=== PATIENT | male | born 1995 | race Caucasian/White ===

== ENCOUNTER 2021-02-26 21:12 | Emergency (ER) | payer OTHER ==
[2021-02-26 23:36] LABS: Basophils % 0.4 % (0-1.3); Lymphocytes % 10.5 % (15.3-44.8); MPV 7.7 fL (7.6-11.3); RBC Red Blood Cell Count 4.81 M/uL (4.33-5.43)
[2021-02-26 23:39] LABS: Protime INR 1.21
[2021-02-26] MEDS ORDERED: ACETAMINOPHEN 325 MG TABLET ONE (23:43)
[2021-02-26] MEDS ORDERED: NA CHLORIDE 0.9% 1,000 ML ONE (23:43)
[2021-02-27 00:01] LABS: ALT/SGPT 22 U/L (12-78); AST/SGOT 27 U/L (15-37); Albumin 4.3 g/dL (3.4-5.0); Alkaline Phosphatase 58 U/L (45-117); BUN Blood Urea Nitrogen 15 mg/dL (7-18); Bicarbonate 26 mmol/L (21-32); Bilirubin Direct 0.2 mg/dL (0-0.2); Bilirubin Total 0.9 mg/dL (0.2-1.0); Glucose Level 104 mg/dL (74-106); Potassium 3.5 mmol/L (3.5-5.1); Protein, Total 7.8 g/dL (6.4-8.2); Sodium Level 143 mmol/L (136-145)
--- NOTE | 2021-02-27 00:26 | ER ---
Nurse's Notes [facility] Name: Saulo Becerrli Age: 25 yrs Sex: Male : 1995 Arrival Date: 02/26/2021 Time: 21:44 Bed 4 Private MD: Diagnosis: Adverse effect of other vaccines and biological substances, initial encounter Presentation: 02/26 22:04 Chief complaint: EMS states: pt received second covid vaccine maderna today and now has bs2 a fever and is unconscious. Coronavirus screen: fever. Ebola Screen: No symptoms or risks identified at this time. Initial Sepsis Screen: Does the patient meet any 2 criteria? No. Patient's initial sepsis screen is negative. Does the patient have a suspected source of infection? No. Patient's initial sepsis screen is negative. Risk Assessment: Do you want to hurt yourself or someone else? Patient reports no desire to harm self or others. Onset of symptoms was February 26, 2021. 22:04 Method Of Arrival: [facility] bs2 22:04 Acuity: DAVE 3 bs2 22:07 Care prior to arrival: IV initiated. 20 GA, in the right antecubital area. bs2 Triage Assessment: 22:07 General: Appears in no apparent distress. slender, well groomed, well developed, well bs2 nourished, Behavior is unresponsive. Pain: Unable to use pain scale. Patient is unresponsive. Historical: - Allergies: 23:53 Iodine; bs2 - Home Meds: 23:53 Unable to obtain [Active]; bs2 - PMHx: 23:53 Asthma; bs2 - Immunization history:: Adult Immunizations up to date. - Social history:: Smoking status: unknown. Screenin:00 Abuse screen: Denies threats or abuse. Nutritional screening: No deficits noted. jb4 Tuberculosis screening: No symptoms or risk factors identified. Fall Risk None identified. Assessment: 21:30 General: Appears in no apparent distress. slender, well groomed, well developed, well bs2 nourished, Behavior is unresponsive. Pain: Unable to use pain scale. Patient is unresponsive. Cardiovascular: No deficits noted. Respiratory: No deficits noted. GI: No deficits noted. Vital Signs: 22:04 BP 136 / 78; Pulse 97; Resp 21; Temp 100.9; Pulse Ox 98% ; Weight 79.38 kg; Height 5 bs2 ft. 10 in. (177.80 cm); Pain 0/10; 22:30 BP 132 / 78; Pulse 98; Resp 19; Pulse Ox 100% on R/A; jb4 23:30 BP 111 / 63; Pulse 86; Resp 25; Pulse Ox 99% on R/A; jb4 02/27 00:30 BP 112 / 63; Pulse 95; Resp 18; Pulse Ox 100% on R/A; jb4 02/26 22:04 Body Mass Index 25.11 (79.38 kg, 177.80 cm) bs2 ED Course: 02/26 21:30 Patient has correct armband on for positive identification. Bed in low position. Call bs2 light in reach. Side rails up X2. Adult w/ patient. 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 Pulse ox on. NIBP on. Warm blanket given. 21:44 Patient arrived in ED. bs2 21:45 Rachel Ashraf is Attending Physician. sp3 22:04 Monalisa Loredo, RN is Primary Nurse. bs2 22:07 Triage completed. bs2 22:07 Arm band placed on right wrist. bs2 02/27 00:50 No provider procedures requiring assistance completed. IV discontinued, intact, jb4 bleeding controlled, No redness/swelling at site. Pressure dressing applied. 01:13 Chest Single View In Process Unspecified. EDMS Administered Medications: 02/26 23:25 Drug: NS 0.9% 1000 ml Route: IV; Rate: 1 bolus; Site: right antecubital; bs2 02/27 02:15 Follow up: IV Status: Completed infusion bs2 02/26 23:25 Drug: Tylenol 650 mg Route: PO; bs2 02/27 02:14 Follow up: Response: No adverse reaction; Temperature is decreased bs2 Outcome: 00:26 Discharge ordered by sp3 00:50 Discharged to Law Enforcement jb4 00:50 Condition: stable 00:50 Discharge instructions given to patient, police, Instructed on discharge instructions, follow up and referral plans. Demonstrated understanding of instructions, follow-up care. 01:31 Patient left the ED. jb4 Signatures: Dispatcher [employer] EDMS Florentin Urban RN RN jb4 Rachel Ashraf sp3 Monalisa Loredo, RN RN bs2 Corrections: (The following items were deleted from the chart) 08/18 23:26 22:04 BP 136 / 78; Pulse 97bpm; Resp 21bpm; Pulse Ox 98%; Pain 0/10; bs2 bs2 23:53 23:53 Allergies: No Known Allergies; bs2 bs2
--- NOTE | 2021-02-27 00:27 | EDPHYS ---
Physician Documentation [facility] Name: Saulo Becerril Age: 25 yrs Sex: Male : 1995 Arrival Date: 02/26/2021 Time: 21:44 Bed 4 Private MD: ED Physician Rachel Ashraf HPI: 02/26 23:41 This 25 yrs old Male presents to ER via EMS with complaints of fever. sp3 23:41 5-year-old male with a history of asthma presents to the ED after receiving his second sp3 COVID-19 vaccine when he was found [facility] the [facility]. He was found to be somewhat unresponsive at which point EMS was activated and he was brought to the ED. He regained consciousness in the ambulance and has been cooperative since. He has no complaints other than fever and generalized malaise. He denies headache, neck pain, chest pain, shortness of breath, abdominal pain, nausea, vomiting, diarrhea, any focal neurological symptoms including sensory deficits and motor weakness, or any other symptoms on ROS.. Historical: - Allergies: 23:53 Iodine; bs2 - Home Meds: 23:53 Unable to obtain [Active]; bs2 - PMHx: 23:53 Asthma; bs2 - Immunization history:: Adult Immunizations up to date. - Social history:: Smoking status: unknown. ROS: 23:43 Eyes: Negative for injury, pain, redness, and discharge. sp3 23:43 ENT: Negative for injury, pain, and discharge, Neck: Negative for injury, pain, and swelling, Cardiovascular: Negative for chest pain, palpitations, and edema, Respiratory: Negative for shortness of breath, cough, wheezing, and pleuritic chest pain, Back: Negative for injury and pain, Skin: Negative for injury, rash, and discoloration, Neuro: Negative for headache, weakness, numbness, tingling, and seizure, Psych: Negative for depression, anxiety, suicide ideation, homicidal ideation, and hallucinations, Allergy/Immunology: Negative for hives, rash, and allergies. 23:43 Constitutional: Positive for fever, malaise. 23:43 All other systems are negative. Exam: 23:44 Head/Face: Normocephalic, atraumatic. Eyes: Pupils equal round and reactive to light, sp3 extra-ocular motions intact. Lids and lashes normal. Conjunctiva and sclera are non-icteric and not injected. Cornea within normal limits. Periorbital areas with no swelling, redness, or edema. ENT: Nares patent. No nasal discharge, no septal abnormalities noted. External auditory canals are clear. Oropharynx with no redness, swelling, or masses, exudates, or evidence of obstruction, uvula midline. Mucous membranes moist. Neck: Trachea midline, no thyromegaly or masses palpated, and no cervical lymphadenopathy. Supple, full range of motion without nuchal rigidity, or vertebral point tenderness. No Meningismus. Chest/axilla: Normal chest wall appearance and motion. Nontender with no deformity. No lesions are appreciated. Cardiovascular: Regular rate and rhythm with a normal S1 and S2. No gallops, murmurs, or rubs. Normal PMI, no JVD. No pulse deficits. Respiratory: Lungs have equal breath sounds bilaterally, clear to auscultation and percussion. No rales, rhonchi or wheezes noted. No increased work of breathing, no retractions or nasal flaring. Abdomen/GI: Soft, non-tender, with normal bowel sounds. No distension or tympany. No guarding or rebound. No evidence of tenderness throughout. Back: No spinal tenderness. No costovertebral tenderness. Full range of motion. Skin: Warm, dry with normal turgor. Normal color with no rashes, no lesions, and no evidence of cellulitis. Neuro: Awake and alert, GCS 15, oriented to person, place, time, and situation. Cranial nerves II-XII grossly intact. Motor strength 5/5 in all extremities. Sensory grossly intact. Cerebellar exam normal. Normal gait. Psych: Awake, alert, with orientation to person, place and time. Behavior, mood, and affect are within normal limits. 23:44 Constitutional: The patient appears in no acute distress, alert, awake, comfortable, febrile. Vital Signs: 22:04 BP 136 / 78; Pulse 97; Resp 21; Temp 100.9; Pulse Ox 98% ; Weight 79.38 kg; Height 5 bs2 ft. 10 in. (177.80 cm); Pain 0/10; 22:30 BP 132 / 78; Pulse 98; Resp 19; Pulse Ox 100% on R/A; jb4 23:30 BP 111 / 63; Pulse 86; Resp 25; Pulse Ox 99% on R/A; [facility] 02/27 00:30 BP 112 / 63; Pulse 95; Resp 18; Pulse Ox 100% on R/A; [facility] 02/26 22:04 Body Mass Index 25.11 (79.38 kg, 177.80 cm) bs2 MDM: 02/26 22:52 Patient medically screened. sp3 23:45 Data reviewed: vital signs, nurses notes, lab test result(s), EKG, radiologic studies. sp3 ED course: 25-year-old male who is now much more awake. EKG demonstrates normal sinus rhythm at 80 bpm with normal intervals, normal QRS, normal axis, normal ST/T-segment's. Will obtain chest x-ray and routine labs as well as administer normal saline 1 L and Tylenol 650 mg p.o. If work-up is negative will discharge patient home at this time. At this time I am not suspicious for sepsis, neurological issue, vascular issue including dissection or ACS, or any other critical emergency at this time.. 02/27 00:25 ED course: Chest x-ray is negative and EKG and laboratory values were reviewed. Patient sp3 is now awake alert with normal vital signs and in no acute distress. Will discharge in custody of fractions officers.. 02/26 23:31 Order name: Basic Metabolic Panel; Complete Time: 00:25 EDND 02/26 23:17 Order name: Chest Single View [facility] 02/26 23:31 Order name: Liver (Hepatic) Function; Complete Time: 00:25 EDND 02/26 23:31 Order name: Magnesium; Complete Time: 00:25 EDND 02/26 23:31 Order name: CBC with Automated Diff; Complete Time: 23:40 EDND 02/26 23:31 Order name: Protime (+INR); Complete Time: 00:25 EDND 02/26 22:53 Order name: EKG; Complete Time: 23:50 [facility] 02/26 22:53 Order name: Cardiac monitoring; Complete Time: 22:53 [facility] 02/26 22:53 Order name: EKG - Nurse/Tech; Complete Time: 23:26 [facility] 02/26 22:53 Order name: IV Saline Lock; Complete Time: 22:53 [facility] 02/26 22:53 Order name: Labs collected and sent; Complete Time: 23:26 sp3 Administered Medications: 02/26 23:25 Drug: NS 0.9% 1000 ml Route: IV; Rate: 1 bolus; Site: right antecubital; bs2 02/27 02:15 Follow up: IV Status: Completed infusion bs2 02/26 23:25 Drug: Tylenol 650 mg Route: PO; bs2 02/27 02:14 Follow up: Response: No adverse reaction; Temperature is decreased bs2 Disposition Summary: 02/27/21 00:26 Discharge Ordered Location: Home sp3 Condition: Stable sp3 Diagnosis - Adverse effect of other vaccines and biological substances, initial encounter sp3 Discharge Instructions: - Discharge Summary Sheet sp3 - Fever, Adult sp3 - Emergency Use Authorization (EUA) of the [employer] COVID-19 Vaccine: Fact sp3 Sheet for Recipients and Caregivers - FDA Forms: - Medication Reconciliation Form sp3 - Thank You Letter sp3 - Antibiotic Education sp3 - Prescription Opioid Use sp3 Signatures: Dispatcher [employer] EDMS Rachel Ashraf sp3 Monalisa Loredo RN RN bs2 Corrections: (The following items were deleted from the chart) 02/26 23:53 23:53 Allergies: No Known Allergies; bs2 bs2 23:57 23:50 CBC+H.LAB.BRZ ordered. EDMS EDMS 23:57 23:50 PROTIME (+INR)+COAG.LAB.BRZ ordered. EDMS EDMS 23:58 23:50 BASIC METABOLIC PANEL+C.LAB.BRZ ordered. EDMS EDMS 23:58 23:50 HEPATIC FUNCTION+C.LAB.BRZ ordered. EDMS EDMS 23:58 23:50 MAGNESIUM+C.LAB.BRZ ordered. EDMS EDMS 02/27 01:27 02/26 23:50 Chest Single View+RAD.RAD.BRZ ordered. EDMS EDMS
[2021-02-27 01:35] VITALS: TEMP 100.9
[2021-02-27 01:39] VITALS: BP 112/63; O2SAT 100
--- NOTE | 2021-02-27 07:44 | RAD REPORT ---
EXAM DESCRIPTION: Kalin Single View02/27/2021 1:13 am CLINICAL HISTORY: Tachycardiac COMPARISON: none FINDINGS: The lungs appear clear of acute infiltrate. The heart is normal size IMPRESSION: No acute abnormalities displayed
--- NOTE | 2021-02-27 08:30 | EKG ---
Test Date: 2021-02-26 Test Time: 23:24:38 Automatic Developer: MARIA L MEASUREMENT RESULTS: Intervals: Rate: 79 MD: 152 QRSD: 86 QT: 338 QTc: 387 [place]: P: 63 MD: 152 QRS: 70 T: 47 INTERPRETIVE STATEMENTS: Normal sinus rhythm Normal ECG No previous ECG available for comparison Electronically Signed On 02-27-21 08:29:22 CDT by Chip Gupta
== END 2021-02-27 01:31 | disposition home or self-care (01) ==
LOC: ER 21:12
DX: R50.9 Fever, unspecified (principal); T50.B95A Adverse effect of other viral vaccines, initial encounter; Z91.048 Other nonmedicinal substance allergy status
CPT/HCPCS: 36415; 71045; 80048; 80076; 83735; 85025; 85610; 93005; 96360; 96361; 99284; J7030